=== PATIENT | male | born 1935 | race African-American/Black ===

== ENCOUNTER 2018-05-27 11:07 | Inpatient (IN) | payer MEDICARE, MEDICAID ==
[~2018-05-27] VITALS: Ht 172.7 cm; Wt 66.3 kg
[2018-05-27] MEDS ORDERED: ASPI-1159 PO (11:16)
[2018-05-27] MEDS ORDERED: FERR324T4 PO (11:16)
[2018-05-27] MEDS ORDERED: DOCU250C14 GT (11:16)
[2018-05-27] MEDS ORDERED: CARB200C4 PO (11:16)
[2018-05-27] MEDS ORDERED: PIOG30TA27 PO (11:16)
[2018-05-27] MEDS ORDERED: SIMV10TA6 PO (11:16)
[2018-05-27] MEDS ORDERED: HYDR12.54 PO (11:16)
[2018-05-27] MEDS ORDERED: LEVE500T78 PO (11:16)
[2018-05-27] MEDS ORDERED: ATEN50TA PO (11:16)
[2018-05-27] MEDS ORDERED: CHOL200074 PO (11:16)
[2018-05-27] MEDS ORDERED: SODIUM CHLORIDE 0.9% 1,000 ML IV ONE (13:30)
[2018-05-27] MEDS ORDERED: ONDANSETRON HCL 4MG/2ML VIAL IV STA (13:30)
[2018-05-27 15:48] LABS: HEMATOCRIT. 25.1 % (42.0-52.0); MEAN CORPUSCULAR VOLUME 90.8 fL (80.0-94.0); MEAN PLATELET VOLUME 8.4 fl (7.4-10.4); PLATELET 339 x1000/uL (130-400); RED BLOOD CELL COUNT 2.76 mill/uL (4.7-6.1); RED CELL DISTRIBUTION WIDTH 16.8 % (11.6-14.6)
[2018-05-27 15:53] LABS: CHLORIDE 106 mEq/L (98-107)
[2018-05-27 15:54] LABS: D-DIMER 0.96 mg/L FEU (<0.50); INR 2.2; PROTHROMBIN TIME 22.7 sec (9.4-11.6)
[2018-05-27 15:57] LABS: ETHANOL BLOOD < 10 mg/dL
[2018-05-27 16:00] LABS: AMMONIA 82 uMol/L (<32)
[2018-05-27 16:02] LABS: CARBAMAZEPINE 8.9 ug/mL (4-12); CREATINE KINASE 55 IU/L (39-308); PHENOBARBITAL < 2.1 ug/mL (15.0-40.0)
[2018-05-27 16:11] LABS: PLATELET ESTIMATE NORMAL; VALPROIC ACID < 3.0 ug/mL (50-100)
[2018-05-27] MEDS ORDERED: GUAIFENESIN 200MG/10ML SUGAR FREE UDC PO PRN (18:00)
[2018-05-27] MEDS ORDERED: MAGNESIUM/ALUMINUM HYDROXIDE/SIMETHICONE 30ML UDC PO PRN (18:00)
[2018-05-27] MEDS ORDERED: DIPHENHYDRAMINE 50MG/ML VIAL IV PRN (18:00)
[2018-05-27] MEDS ORDERED: DOCUSATE SODIUM 100MG CAPSULE PO PRN (18:00)
[2018-05-27 19:20] LABS: HEPATITIS B SURFACE ANTIGEN NEGATIVE
[2018-05-27] MEDS ORDERED: MORPHINE SULFATE 4 MG/ML CPJ (NOT FOR IM USE) IV PRN (19:30)
[2018-05-27 19:48] LABS: HEPATITIS B CORE AB IGM NEGATIVE
[2018-05-27 19:50] LABS: HEPATITIS A AB IGM NEGATIVE (NEGATIVE)
[2018-05-27] MEDS ORDERED: NA PHOS,M-B/NA PHOS,DI-BA ENEMA 118ML PR PRN (21:00)
[2018-05-27] MEDS ORDERED: ONDANSETRON 4MG ODT PO PRN (23:45)
[2018-05-27 23:55] VITALS: BP 153/74
[2018-05-28] VITALS: BP_SYST 153; BP_SYST 154; BP_DIAS 74; BP_DIAS 85
[2018-05-28 04:00] VITALS: BP 121/70
[2018-05-28 07:02] LABS: CHLORIDE 109 mEq/L (98-107)
[2018-05-28 07:12] LABS: HEMOGLOBIN. 7.4 g/dL (14.0-18.0); MEAN CORPUSCULAR HEMOGLOBIN 29.6 pg (28.0-32.0); MEAN CORPUSCULAR VOLUME 91.6 fL (80.0-94.0); MEAN PLATELET VOLUME 8.3 fl (7.4-10.4); PLATELET 296 x1000/uL (130-400); RED BLOOD CELL COUNT 2.51 mill/uL (4.7-6.1); RED CELL DISTRIBUTION WIDTH 16.5 % (11.6-14.6)
[2018-05-28 07:49] LABS: HDL CHOLESTEROL 6 mg/dL (40-59)
[2018-05-28 08:00] VITALS: BP 128/73
[2018-05-28 08:01] LABS: LDL CHOLESTEROL 334 mg/dL (5-100)
[2018-05-28 12:00] VITALS: BP 114/72
[2018-05-28] MEDS: LACTULOSE 20G/30ML UDC PO SCH (12:15)
[2018-05-28 15:49] LABS: PLATELET ESTIMATE NORMAL
[2018-05-28 16:00] VITALS: BP 134/89
[2018-05-28 20:00] VITALS: BP 102/67
[2018-05-28] MEDS: CARBAMAZEPINE 200MG TABLET PO SCH (20:58)
[2018-05-28] MEDS: LEVETIRACETAM 500MG TABLET PO SCH (20:58)
[2018-05-29] VITALS: BP 119/79
[2018-05-29 04:00] VITALS: BP 154/85
[2018-05-29 07:19] LABS: AMMONIA 83 uMol/L (<32)
[2018-05-29 08:00] VITALS: BP 121/76
[2018-05-29] MEDS: LACTULOSE 20G/30ML UDC PO SCH ×2 (10:52→18:12)
[2018-05-29] MEDS: LEVETIRACETAM 500MG TABLET PO SCH ×2 (10:53→20:21)
[2018-05-29] MEDS: CARBAMAZEPINE 200MG TABLET PO SCH ×2 (10:54→20:21)
[2018-05-29 12:00] VITALS: BP 113/79
[2018-05-29 16:00] VITALS: BP 131/81
[2018-05-29 20:16] VITALS: BP 125/77
[2018-05-29] MEDS ORDERED: DEXT 5%/0.45% NACL KCL 10MEQ/L 1,000 ML IV SCH (22:00)
[2018-05-29] MEDS: DEXT 5%/0.45% NACL KCL 10MEQ/L 1,000 ML IV SCH (23:41)
[2018-05-30 00:10] VITALS: BP 133/70
[2018-05-30 04:00] VITALS: BP 132/71
[2018-05-30 06:43] LABS: AMMONIA 70 uMol/L (<32); CHLORIDE 109 mEq/L (98-107)
[2018-05-30 07:27] LABS: HEMOGLOBIN. 7.1 g/dL (14.0-18.0); MEAN CORPUSCULAR HEMOGLOBIN 29.6 pg (28.0-32.0); MEAN CORPUSCULAR VOLUME 91.6 fL (80.0-94.0); MEAN PLATELET VOLUME 8.1 fl (7.4-10.4); PLATELET 335 x1000/uL (130-400); RED CELL DISTRIBUTION WIDTH 16.8 % (11.6-14.6)
[2018-05-30 08:00] VITALS: BP 144/89
[2018-05-30 09:02] LABS: PLATELET ESTIMATE NORMAL
[2018-05-30] MEDS: CARBAMAZEPINE 200MG TABLET PO SCH ×2 (09:45→21:25)
[2018-05-30] MEDS: LEVETIRACETAM 500MG TABLET PO SCH ×2 (09:45→21:25)
[2018-05-30] MEDS: LACTULOSE 20G/30ML UDC PO SCH ×2 (09:45→17:00)
[2018-05-30 12:00] VITALS: BP 135/82
[2018-05-30 12:43] LABS: CLARITY URINE CLEAR (CLEAR); COLOR URINE DARK YELLOW (YELLOW); KETONES URINE NEGATIVE (NEGATIVE); LEUKOCYTE ESTERASE URINE TRACE (NEGATIVE); NITRITE URINE NEGATIVE (NEGATIVE); OCCULT BLOOD URINE 2+ (NEGATIVE); PROTEIN URINE 1+ (NEGATIVE); SPECIFIC GRAVITY URINE 1.017 (1.005-1.030); UROBILINOGEN URINE 0.2 E.U./dL (0.2-1.0)
[2018-05-30] MEDS: DEXT 5%/0.45% NACL KCL 10MEQ/L 1,000 ML IV SCH (12:46)
[2018-05-30 13:10] LABS: CANNABINOID URINE SCREEN NEGATIVE (NEGATIVE); METHADONE URINE SCREEN NEGATIVE (NEGATIVE); OPIATES URINE SCREEN NEGATIVE (NEGATIVE); PHENCYCLIDINE URINE SCREEN NEGATIVE (NEGATIVE)
[2018-05-30 13:11] LABS: *AMPHETAMINES SCREEN URINE NEGATIVE (NEGATIVE); *BARBITURATES SCREEN URINE NEGATIVE (NEGATIVE); *BENZODIAZEPINES SCREEN URINE NEGATIVE (NEGATIVE); *COCAINE SCREEN URINE NEGATIVE (NEGATIVE)
[2018-05-30 13:33] LABS: HEMATOCRIT. 23.5 % (42.0-52.0); HEMOGLOBIN. 7.6 g/dL (14.0-18.0); MEAN CORPUSCULAR HEMOGLOBIN 29.5 pg (28.0-32.0); MEAN CORPUSCULAR VOLUME 91.6 fL (80.0-94.0); MEAN PLATELET VOLUME 7.9 fl (7.4-10.4); PLATELET 339 x1000/uL (130-400); RED BLOOD CELL COUNT 2.57 mill/uL (4.7-6.1); RED CELL DISTRIBUTION WIDTH 16.6 % (11.6-14.6)
[2018-05-30 14:10] LABS: PLATELET ESTIMATE NORMAL
[2018-05-30 16:00] VITALS: BP 148/81
[2018-05-30 20:00] VITALS: BP 133/79
[2018-05-31 00:38] VITALS: BP 149/88
[2018-05-31] MEDS: DEXT 5%/0.45% NACL KCL 10MEQ/L 1,000 ML IV SCH ×2 (02:27→16:57)
[2018-05-31 04:00] VITALS: BP 138/79
[2018-05-31 07:04] LABS: CHLORIDE 106 mEq/L (98-107)
[2018-05-31 07:46] LABS: HEMATOCRIT. 23.2 % (42.0-52.0); HEMOGLOBIN. 7.5 g/dL (14.0-18.0); MEAN CORPUSCULAR HEMOGLOBIN 29.6 pg (28.0-32.0); MEAN CORPUSCULAR VOLUME 91.6 fL (80.0-94.0); MEAN PLATELET VOLUME 8.1 fl (7.4-10.4); PLATELET 339 x1000/uL (130-400); RED BLOOD CELL COUNT 2.54 mill/uL (4.7-6.1); RED CELL DISTRIBUTION WIDTH 16.7 % (11.6-14.6)
[2018-05-31 08:00] VITALS: BP 120/74
[2018-05-31] MEDS: LEVETIRACETAM 500MG TABLET PO SCH ×2 (08:21→20:06)
[2018-05-31] MEDS: CARBAMAZEPINE 200MG TABLET PO SCH ×2 (08:21→20:06)
[2018-05-31] MEDS: LACTULOSE 20G/30ML UDC PO SCH ×2 (08:21→16:57)
[2018-05-31] MEDS ORDERED: FLUCONAZOLE 200MG/100ML PREMIX IV ONE (10:30)
[2018-05-31 12:00] VITALS: BP 119/79
[2018-05-31] MEDS ORDERED: FLUCONAZOLE 200 MG/100ML BAG 100 ML IV NR (12:00)
[2018-05-31 17:14] LABS: PLATELET ESTIMATE NORMAL
[2018-05-31 19:01] LABS: INR 2.4; PROTHROMBIN TIME 25.4 sec (9.4-11.6)
[2018-05-31 20:00] VITALS: BP 122/80
[2018-06-01] VITALS (7 sets, daily range): BP systolic 128–158; BP diastolic 67–94
[2018-06-01] MEDS: DEXT 5%/0.45% NACL KCL 10MEQ/L 1,000 ML IV SCH (06:35)
[2018-06-01 06:40] LABS: CHLORIDE 107 mEq/L (98-107)
[2018-06-01 07:29] LABS: AMMONIA 143 uMol/L (<32)
[2018-06-01] MEDS: POTASSIUM CHLORIDE 10MEQ TABLET SR PO SCH (09:39)
[2018-06-01] MEDS: LACTULOSE 20G/30ML UDC PO SCH ×2 (09:39→17:19)
[2018-06-01] MEDS: LEVETIRACETAM 500MG TABLET PO SCH ×2 (09:41→21:02)
[2018-06-01] MEDS: CARBAMAZEPINE 200MG TABLET PO SCH ×2 (09:41→21:02)
[2018-06-01] MEDS: FLUCONAZOLE IV SCH (11:37)
[2018-06-01] MEDS: PANTOPRAZOLE SODIUM 40 MG/VIAL IV SCH ×2 (11:37→21:02)
[2018-06-01] MEDS: PHYTONADIONE 10MG/ML AMP SUBCUT SCH (15:07)
[2018-06-02 04:00] VITALS: BP 153/93
[2018-06-02 06:26] LABS: INR 1.4; PROTHROMBIN TIME 14.5 sec (9.4-11.6)
[2018-06-02 08:00] VITALS: BP 133/82
[2018-06-02] MEDS: PANTOPRAZOLE SODIUM 40 MG/VIAL IV SCH ×2 (09:49→20:10)
[2018-06-02] MEDS: PHYTONADIONE 10MG/ML AMP SUBCUT SCH (09:50)
[2018-06-02] MEDS: POTASSIUM CHLORIDE 10MEQ TABLET SR PO SCH (09:50)
[2018-06-02] MEDS: CARBAMAZEPINE 200MG TABLET PO SCH ×2 (09:50→20:10)
[2018-06-02] MEDS: LEVETIRACETAM 500MG TABLET PO SCH ×2 (09:50→20:10)
[2018-06-02 10:10] LABS: CHLORIDE 108 mEq/L (98-107)
[2018-06-02 12:00] VITALS: BP 149/84
[2018-06-02] MEDS: FLUCONAZOLE IV SCH (12:23)
[2018-06-02] MEDS: LACTULOSE 20G/30ML UDC PO SCH ×2 (12:23→17:37)
[2018-06-02] MEDS: DEXT 5%/0.45% NACL KCL 10MEQ/L 1,000 ML IV SCH (12:23)
[2018-06-02 14:35] LABS: AMMONIA 82 uMol/L (<32)
[2018-06-02 16:00] VITALS: BP 150/94
[2018-06-02 20:15] VITALS: BP 161/94
[2018-06-02] MEDS: CLONIDINE 0.1MG TABLET PO PRN (20:32)
[2018-06-03] VITALS (27 sets, daily range): BP systolic 136–176; BP diastolic 72–100
[2018-06-03] MEDS: DEXT 5%/0.45% NACL KCL 10MEQ/L 1,000 ML IV SCH ×2 (03:33→20:16)
[2018-06-03] MEDS ORDERED: IOHEXOL-300 50 ML BOTTLE IV ONE ×2 (07:58→09:10)
[2018-06-03] MEDS ORDERED: SODIUM BICARBONATE 4% (2.4MEQ) 5ML VIAL IV ONE (07:58)
[2018-06-03] MEDS ORDERED: LIDOCAINE HCL 1% 20ML VIAL (Pyxis) INJ ONE ×2 (07:58→09:10)
[2018-06-03] MEDS ORDERED: FENTANYL CITRATE/PF 50MCG/ML 2ML VIAL IV ONE (08:35)
[2018-06-03] MEDS ORDERED: MIDAZOLAM HCL 5 MG/5 ML VIAL IV ONE (08:35)
[2018-06-03] MEDS ORDERED: MIDAZOLAM HCL 2 MG/2 ML VIAL ONE (08:43)
[2018-06-03] MEDS ORDERED: FENTANYL CITRATE/PF 50MCG/ML 2ML VIAL ONE ×2 (08:43→09:47)
[2018-06-03] MEDS ORDERED: IOHEXOL-300 100 ML BOTTLE ONE (09:40)
[2018-06-03] MEDS: FLUCONAZOLE IV SCH (12:53)
[2018-06-03] MEDS: CARBAMAZEPINE 200MG TABLET PO SCH ×2 (12:54→20:15)
[2018-06-03] MEDS: LACTULOSE 20G/30ML UDC PO SCH ×2 (12:54→18:13)
[2018-06-03] MEDS: POTASSIUM CHLORIDE 10MEQ TABLET SR PO SCH (12:54)
[2018-06-03] MEDS: PANTOPRAZOLE SODIUM 40 MG/VIAL IV SCH ×2 (12:54→20:14)
[2018-06-03] MEDS: LEVETIRACETAM 500MG TABLET PO SCH ×2 (12:54→20:15)
[2018-06-03 13:00] LABS: INR 1.2; PROTHROMBIN TIME 12.2 sec (9.4-11.6)
[2018-06-03] MEDS: DILTIAZEM HCL 60MG TABLET PO PRN ×2 (18:25→20:16)
[2018-06-03 19:02] LABS: HEMATOCRIT. 26.8 % (42.0-52.0); HEMOGLOBIN. 8.7 g/dL (14.0-18.0); MEAN CORPUSCULAR HEMOGLOBIN 29.6 pg (28.0-32.0); MEAN CORPUSCULAR VOLUME 91.3 fL (80.0-94.0); MEAN PLATELET VOLUME 7.9 fl (7.4-10.4); PLATELET 399 x1000/uL (130-400); RED BLOOD CELL COUNT 2.93 mill/uL (4.7-6.1); RED CELL DISTRIBUTION WIDTH 17.3 % (11.6-14.6)
[2018-06-03 19:06] LABS: CHLORIDE 103 mEq/L (98-107)
[2018-06-03 19:22] LABS: PLATELET ESTIMATE NORMAL
[2018-06-03] MEDS: ACETAMINOPHEN 325MG TABLET PO PRN (20:16)
[2018-06-04] VITALS (11 sets, daily range): BP systolic 109–165; BP diastolic 65–100
[2018-06-04 06:49] LABS: AMMONIA 44 uMol/L (<32)
[2018-06-04 06:55] LABS: MEAN CORPUSCULAR HEMOGLOBIN 30.1 pg (28.0-32.0); MEAN CORPUSCULAR VOLUME 91.2 fL (80.0-94.0); MEAN PLATELET VOLUME 7.9 fl (7.4-10.4); PLATELET 324 x1000/uL (130-400); RED BLOOD CELL COUNT 2.27 mill/uL (4.7-6.1); RED CELL DISTRIBUTION WIDTH 17.2 % (11.6-14.6)
[2018-06-04 08:51] LABS: HEMATOCRIT. 20.7 % (42.0-52.0); HEMOGLOBIN. 6.8 g/dL (14.0-18.0)
[2018-06-04] MEDS: POTASSIUM CHLORIDE 10MEQ TABLET SR PO SCH (09:00)
[2018-06-04 09:08] LABS: CHLORIDE 108 mEq/L (98-107)
[2018-06-04] MEDS: LACTULOSE 20G/30ML UDC PO SCH ×2 (11:45→17:38)
[2018-06-04] MEDS: CARBAMAZEPINE 200MG TABLET PO SCH ×2 (11:45→22:29)
[2018-06-04] MEDS: LEVETIRACETAM 500MG TABLET PO SCH ×2 (11:45→22:29)
[2018-06-04] MEDS: PANTOPRAZOLE SODIUM 40 MG/VIAL IV SCH ×2 (11:45→22:29)
[2018-06-04] MEDS: DEXT 5%/0.45% NACL KCL 10MEQ/L 1,000 ML IV SCH (11:48)
[2018-06-04] MEDS: FLUCONAZOLE IV SCH (11:49)
[2018-06-04 17:34] LABS: PLATELET ESTIMATE NORMAL
[2018-06-04 21:21] LABS: INR 1.1; PARTIAL THROMBOPLASTIN TIME 40.1 sec (23.4-31.0); PROTHROMBIN TIME 11.4 sec (9.1-11.1)
[2018-06-04 21:24] LABS: HEMATOCRIT 23.9 % (42.0-52.0); HEMOGLOBIN 8.1 g/dL (14.0-18.0)
[2018-06-04 21:38] LABS: TOTAL IRON BINDING CAPACITY 179 ug/dL (250-450)
[2018-06-04] MEDS: CLONIDINE 0.1MG TABLET PO PRN (23:59)
[2018-06-05] VITALS (8 sets, daily range): BP systolic 138–179; BP diastolic 79–103
[2018-06-05 06:42] LABS: INR 1.1; PARTIAL THROMBOPLASTIN TIME 41.3 sec (23.4-31.0); PROTHROMBIN TIME 11.4 sec (9.1-11.1)
[2018-06-05 07:42] LABS: HEMATOCRIT. 24.4 % (42.0-52.0); HEMOGLOBIN. 8.2 g/dL (14.0-18.0); MEAN CORPUSCULAR HEMOGLOBIN 29.6 pg (28.0-32.0); MEAN CORPUSCULAR VOLUME 87.9 fL (80.0-94.0); MEAN PLATELET VOLUME 8.1 fl (7.4-10.4); PLATELET 276 x1000/uL (130-400); RED BLOOD CELL COUNT 2.78 mill/uL (4.7-6.1); RED CELL DISTRIBUTION WIDTH 16.6 % (11.6-14.6)
[2018-06-05] MEDS: LACTULOSE 20G/30ML UDC PO SCH ×2 (09:00→16:58)
[2018-06-05] MEDS: LEVETIRACETAM 500MG TABLET PO SCH ×2 (09:02→21:33)
[2018-06-05] MEDS: CARBAMAZEPINE 200MG TABLET PO SCH ×2 (09:02→21:33)
[2018-06-05] MEDS: POTASSIUM CHLORIDE 10MEQ TABLET SR PO SCH (09:09)
[2018-06-05] MEDS: PANTOPRAZOLE SODIUM 40 MG/VIAL IV SCH ×2 (09:10→21:32)
[2018-06-05] MEDS ORDERED: SIMETHICONE 40 MG/0.6 ML 30ML ONE (11:00)
[2018-06-05] MEDS ORDERED: FENTANYL CITRATE/PF 50MCG/ML 2ML VIAL ONE (11:00)
[2018-06-05] MEDS: FLUCONAZOLE IV SCH ×2 (11:00→15:13)
[2018-06-05] MEDS ORDERED: MIDAZOLAM HCL 5 MG/5 ML VIAL ONE (11:00)
[2018-06-05] MEDS ORDERED: MIDAZOLAM HCL 5 MG/5 ML VIAL IV PRN (11:13)
[2018-06-05] MEDS ORDERED: FENTANYL CITRATE/PF 50MCG/ML 2ML VIAL IV PRN (11:14)
[2018-06-05 11:23] LABS: CHLORIDE 108 mEq/L (98-107)
[2018-06-05] MEDS: CLONIDINE 0.1MG TABLET PO PRN ×2 (13:52→21:33)
[2018-06-05] MEDS: DEXT 5%/0.45% NACL KCL 10MEQ/L 1,000 ML IV SCH (15:14)
[2018-06-05 16:29] LABS: PLATELET ESTIMATE NORMAL
[2018-06-05] MEDS: ACETAMINOPHEN 325MG TABLET PO PRN ×2 (21:33)
[2018-06-06] VITALS (16 sets, daily range): BP systolic 131–166; BP diastolic 85–100
[2018-06-06 06:47] LABS: HEMATOCRIT. 26.1 % (42.0-52.0); HEMOGLOBIN. 8.9 g/dL (14.0-18.0); MEAN CORPUSCULAR VOLUME 88.4 fL (80.0-94.0); MEAN PLATELET VOLUME 7.7 fl (7.4-10.4); PLATELET 287 x1000/uL (130-400); RED BLOOD CELL COUNT 2.96 mill/uL (4.7-6.1); RED CELL DISTRIBUTION WIDTH 16.6 % (11.6-14.6)
[2018-06-06 07:43] LABS: NUCLEATED RED BLOOD CELLS 2 /100 WBC; PLATELET ESTIMATE NORMAL
[2018-06-06] MEDS: CARBAMAZEPINE 200MG TABLET PO SCH ×2 (08:43→20:18)
[2018-06-06] MEDS: PANTOPRAZOLE SODIUM 40 MG/VIAL IV SCH ×2 (08:43→20:18)
[2018-06-06] MEDS: LEVETIRACETAM 500MG TABLET PO SCH ×2 (08:43→20:18)
[2018-06-06] MEDS: POTASSIUM CHLORIDE 10MEQ TABLET SR PO SCH (08:43)
[2018-06-06] MEDS: LACTULOSE 20G/30ML UDC PO SCH ×2 (08:43→16:57)
[2018-06-06] MEDS ORDERED: SODIUM BICARBONATE 4% (2.4MEQ) 5ML VIAL IV ONE (10:17)
[2018-06-06] MEDS ORDERED: IOHEXOL-300 50 ML BOTTLE IV ONE (10:17)
[2018-06-06] MEDS ORDERED: LIDOCAINE HCL 1% 20ML VIAL (Pyxis) INJ ONE (10:18)
[2018-06-06] MEDS ORDERED: FENTANYL CITRATE/PF 50MCG/ML 2ML VIAL IV ONE (10:30)
[2018-06-06] MEDS ORDERED: FENTANYL CITRATE/PF 50MCG/ML 2ML VIAL ONE (10:32)
[2018-06-06] MEDS: DEXT 5%/0.45% NACL KCL 10MEQ/L 1,000 ML IV SCH (11:46)
[2018-06-06] MEDS: FLUCONAZOLE IV SCH (11:46)
[2018-06-06] MEDS: CLONIDINE 0.1MG TABLET PO PRN ×2 (12:08→20:18)
[2018-06-06] MEDS ORDERED: SODIUM CHLORIDE 0.9% 10ML VIAL ONE (14:57)
[2018-06-06 17:06] LABS: A/G RATIO 0.6 (0.7-1.7); ALBUMIN 2.4 g/dL (2.9-4.4); ALPHA-1-GLOBULIN 0.4 g/dL (0.0-0.4); ALPHA-2-GLOBULIN 0.8 g/dL (0.4-1.0); BETA GLOBULIN 1.6 g/dL (0.7-1.3); GLOBULIN TOTAL 3.9 g/dL (2.2-3.9); M-SPIKE Not Observed g/dL (Not Observed); TOTAL PROTEIN SERUM 6.3 g/dL (6.0-8.5)
[2018-06-06 17:34] LABS: CREATINE KINASE 40 IU/L (39-308)
[2018-06-06] MEDS: ACETAMINOPHEN 325MG TABLET PO PRN (20:18)
[2018-06-07] VITALS: BP 150/95
[2018-06-07 04:00] VITALS: BP 142/90
[2018-06-07 06:14] LABS: HEMATOCRIT. 27.1 % (42.0-52.0); HEMOGLOBIN. 9.1 g/dL (14.0-18.0); MEAN CORPUSCULAR HEMOGLOBIN 29.7 pg (28.0-32.0); MEAN CORPUSCULAR VOLUME 88.1 fL (80.0-94.0); MEAN PLATELET VOLUME 7.5 fl (7.4-10.4); PLATELET 313 x1000/uL (130-400); RED BLOOD CELL COUNT 3.08 mill/uL (4.7-6.1); RED CELL DISTRIBUTION WIDTH 16.8 % (11.6-14.6)
[2018-06-07] MEDS: DEXT 5%/0.45% NACL KCL 10MEQ/L 1,000 ML IV SCH (06:14)
[2018-06-07 07:04] LABS: PHOSPHORUS 3.3 mg/dL (2.5-4.9)
[2018-06-07 08:00] VITALS: BP 158/98
[2018-06-07 08:37] LABS: PLATELET ESTIMATE NORMAL
[2018-06-07] MEDS: LACTULOSE 20G/30ML UDC PO SCH ×2 (09:00→19:03)
[2018-06-07] MEDS ORDERED: MAGNESIUM 4 G PREMIX 100 ML IV ONE (09:15)
[2018-06-07] MEDS: PANTOPRAZOLE SODIUM 40 MG/VIAL IV SCH ×2 (09:53→20:57)
[2018-06-07] MEDS: POTASSIUM CHLORIDE 10MEQ TABLET SR PO SCH (09:54)
[2018-06-07] MEDS: CARBAMAZEPINE 200MG TABLET PO SCH ×2 (09:55→20:57)
[2018-06-07] MEDS: LEVETIRACETAM 500MG TABLET PO SCH ×2 (09:55→20:57)
[2018-06-07] MEDS ORDERED: MAGNESIUM 4 G PREMIX 100 ML IV NR (10:00)
[2018-06-07] MEDS: FLUCONAZOLE IV SCH (10:02)
[2018-06-07 12:00] VITALS: BP 147/93
[2018-06-07 16:00] VITALS: BP 142/96
[2018-06-07] MEDS: DEXT 5%/0.9% NACL 1,000 ML IV SCH (19:04)
[2018-06-07 20:00] VITALS: BP 152/102
[2018-06-08] VITALS: BP_SYST 157; BP_SYST 164; BP_DIAS 92; BP_DIAS 99
[2018-06-08 04:00] VITALS: BP 164/89
[2018-06-08] MEDS: DEXT 5%/0.9% NACL 1,000 ML IV SCH ×2 (07:00→23:35)
[2018-06-08 07:01] LABS: HEMATOCRIT. 26.9 % (42.0-52.0); HEMOGLOBIN. 9.2 g/dL (14.0-18.0); MEAN PLATELET VOLUME 7.5 fl (7.4-10.4); PLATELET 313 x1000/uL (130-400); RED BLOOD CELL COUNT 3.06 mill/uL (4.7-6.1)
[2018-06-08 08:00] VITALS: BP 162/98
[2018-06-08 08:21] LABS: PHOSPHORUS 3.2 mg/dL (2.5-4.9)
[2018-06-08] MEDS: PANTOPRAZOLE SODIUM 40 MG/VIAL IV SCH ×2 (09:45→20:08)
[2018-06-08] MEDS: LACTULOSE 20G/30ML UDC PO SCH ×2 (09:45→17:16)
[2018-06-08] MEDS: CARBAMAZEPINE 200MG TABLET PO SCH ×2 (09:45→20:07)
[2018-06-08] MEDS: LEVETIRACETAM 500MG TABLET PO SCH ×2 (09:45→20:07)
[2018-06-08] MEDS: CLONIDINE 0.1MG TABLET PO PRN (09:45)
[2018-06-08 10:30] LABS: PLATELET ESTIMATE NORMAL
[2018-06-08] MEDS: FLUCONAZOLE IV SCH (11:16)
[2018-06-08 12:00] VITALS: BP 161/96
[2018-06-08 16:00] VITALS: BP 165/97
[2018-06-08] MEDS ORDERED: MAGNESIUM SULFATE 2 GM in DEXTROSE 5% WATER 50 ML IV NR (16:30)
[2018-06-08] MEDS: MAGNESIUM 1 G PREMIX 100 ML IV SCH ×2 (17:16→18:39)
[2018-06-08 20:48] VITALS: BP 153/99
[2018-06-09 00:33] VITALS: BP 175/98
[2018-06-09 04:00] VITALS: BP 175/100
[2018-06-09 07:11] LABS: HEMATOCRIT. 28.9 % (42.0-52.0); HEMOGLOBIN. 9.5 g/dL (14.0-18.0); MEAN CORPUSCULAR HEMOGLOBIN 29.3 pg (28.0-32.0); MEAN CORPUSCULAR VOLUME 88.9 fL (80.0-94.0); MEAN PLATELET VOLUME 7.8 fl (7.4-10.4); PLATELET 340 x1000/uL (130-400); RED BLOOD CELL COUNT 3.25 mill/uL (4.7-6.1); RED CELL DISTRIBUTION WIDTH 17.1 % (11.6-14.6)
[2018-06-09 08:00] VITALS: BP 165/96
[2018-06-09] MEDS: CARBAMAZEPINE 200MG TABLET PO SCH ×2 (08:30→21:01)
[2018-06-09] MEDS: LEVETIRACETAM 500MG TABLET PO SCH ×2 (08:30→21:01)
[2018-06-09] MEDS: LACTULOSE 20G/30ML UDC PO SCH ×2 (08:30→17:00)
[2018-06-09] MEDS: PANTOPRAZOLE SODIUM 40 MG/VIAL IV SCH ×2 (08:30→21:01)
[2018-06-09] MEDS: CLONIDINE 0.1MG TABLET PO PRN (09:42)
[2018-06-09 12:00] VITALS: BP 148/88
[2018-06-09 13:51] LABS: PLATELET ESTIMATE NORMAL
[2018-06-09 16:00] VITALS: BP 157/96
[2018-06-09 20:00] VITALS: BP 140/96
[2018-06-10] VITALS: BP 164/104
[2018-06-10 04:00] VITALS: BP 152/98
[2018-06-10 07:02] LABS: HEMATOCRIT. 27.8 % (42.0-52.0); HEMOGLOBIN. 9.4 g/dL (14.0-18.0); MEAN CORPUSCULAR HEMOGLOBIN 29.6 pg (28.0-32.0); MEAN CORPUSCULAR VOLUME 87.6 fL (80.0-94.0); MEAN PLATELET VOLUME 7.3 fl (7.4-10.4); PLATELET 339 x1000/uL (130-400); RED BLOOD CELL COUNT 3.17 mill/uL (4.7-6.1)
[2018-06-10 08:00] VITALS: BP 155/96
[2018-06-10] MEDS: DEXT 5%/0.9% NACL 1,000 ML IV SCH (08:34)
[2018-06-10] MEDS: CARBAMAZEPINE 200MG TABLET PO SCH ×2 (09:53→20:27)
[2018-06-10] MEDS: LEVETIRACETAM 500MG TABLET PO SCH ×2 (09:53→20:27)
[2018-06-10] MEDS: PANTOPRAZOLE SODIUM 40 MG/VIAL IV SCH ×2 (09:53→20:28)
[2018-06-10] MEDS: LACTULOSE 20G/30ML UDC PO SCH ×2 (09:54→17:44)
[2018-06-10 12:00] VITALS: BP 161/99
[2018-06-10] MEDS ORDERED: MAGNESIUM SULFATE 2 GM in DEXTROSE 5% WATER 50 ML IV NR (12:00)
[2018-06-10 13:06] LABS: ANTI-MYELOPEROXIDASE AB < 9.0 U/mL (0.0-9.0); ANTI-PROTEINASE 3 ABS < 3.5 U/mL (0.0-3.5)
[2018-06-10] MEDS: CLONIDINE 0.1MG TABLET PO PRN ×2 (13:28→20:27)
[2018-06-10 14:17] LABS: ATYPICAL P-ANCA <1:20 titer (Neg:<1:20); CYTOPLASMIC C-ANCA <1:20 titer (Neg:<1:20); PERINUCLEAR P-ANCA <1:20 titer (Neg:<1:20)
[2018-06-10 16:00] VITALS: BP 148/91
[2018-06-10 16:05] LABS: PLATELET ESTIMATE NORMAL
[2018-06-10 20:00] VITALS: BP 160/103
[2018-06-11 04:00] VITALS: BP 134/88
[2018-06-11 05:39] LABS: HEMATOCRIT. 26.5 % (42.0-52.0); HEMOGLOBIN. 9.1 g/dL (14.0-18.0); MEAN CORPUSCULAR HEMOGLOBIN 30.1 pg (28.0-32.0); MEAN CORPUSCULAR VOLUME 87.8 fL (80.0-94.0); MEAN PLATELET VOLUME 7.3 fl (7.4-10.4); PLATELET 330 x1000/uL (130-400); RED BLOOD CELL COUNT 3.02 mill/uL (4.7-6.1)
[2018-06-11 06:00] VITALS: BP_SYST 154; BP_SYST 158; BP_DIAS 60; BP_DIAS 65
[2018-06-11 06:34] LABS: CHLORIDE 106 mEq/L (98-107)
[2018-06-11 06:45] LABS: PHOSPHORUS 2.7 mg/dL (2.5-4.9)
[2018-06-11 08:00] VITALS: BP 154/97
[2018-06-11] MEDS: LEVETIRACETAM 500MG TABLET PO SCH ×2 (08:26→20:08)
[2018-06-11] MEDS: LACTULOSE 20G/30ML UDC PO SCH ×2 (08:26→17:09)
[2018-06-11] MEDS: PANTOPRAZOLE SODIUM 40 MG/VIAL IV SCH ×2 (08:26→20:08)
[2018-06-11] MEDS: CARBAMAZEPINE 200MG TABLET PO SCH ×2 (08:26→20:08)
[2018-06-11 12:00] VITALS: BP 126/88
[2018-06-11 14:02] LABS: PLATELET ESTIMATE NORMAL
[2018-06-11 16:00] VITALS: BP 145/91
[2018-06-11] MEDS: ACETAMINOPHEN 325MG TABLET PO PRN (17:10)
[2018-06-11 20:00] VITALS: BP 151/86
[2018-06-12] VITALS: BP 147/86
[2018-06-12 04:00] VITALS: BP 150/94
[2018-06-12 07:36] LABS: HEMATOCRIT. 27.5 % (42.0-52.0); HEMOGLOBIN. 9.4 g/dL (14.0-18.0); MEAN CORPUSCULAR HEMOGLOBIN 30.2 pg (28.0-32.0); MEAN CORPUSCULAR VOLUME 87.9 fL (80.0-94.0); MEAN PLATELET VOLUME 7.4 fl (7.4-10.4); PLATELET 375 x1000/uL (130-400); RED BLOOD CELL COUNT 3.12 mill/uL (4.7-6.1); RED CELL DISTRIBUTION WIDTH 17.3 % (11.6-14.6)
[2018-06-12 07:45] LABS: CHLORIDE 106 mEq/L (98-107)
[2018-06-12 08:00] VITALS: BP 145/91
[2018-06-12 08:04] LABS: PHOSPHORUS 2.7 mg/dL (2.5-4.9)
[2018-06-12] MEDS: LACTULOSE 20G/30ML UDC PO SCH ×2 (08:25→17:02)
[2018-06-12] MEDS: PANTOPRAZOLE SODIUM 40 MG/VIAL IV SCH ×2 (08:25→22:48)
[2018-06-12] MEDS: LEVETIRACETAM 500MG TABLET PO SCH ×2 (08:25→22:48)
[2018-06-12] MEDS: CARBAMAZEPINE 200MG TABLET PO SCH ×2 (08:25→22:48)
[2018-06-12 12:00] VITALS: BP_SYST 145; BP_SYST 156; BP_DIAS 70; BP_DIAS 91
[2018-06-12] MEDS ORDERED: IOHEXOL-300 50 ML BOTTLE IV ONE (14:10)
[2018-06-12] MEDS ORDERED: SODIUM BICARBONATE 4% (2.4MEQ) 5ML VIAL IV ONE (14:26)
[2018-06-12] MEDS ORDERED: LIDOCAINE HCL 1% 20ML VIAL (Pyxis) INJ ONE (14:26)
[2018-06-12 15:20] LABS: PLATELET ESTIMATE NORMAL
[2018-06-12 16:00] VITALS: BP 161/61
[2018-06-12] MEDS: DILTIAZEM HCL 60MG TABLET PO PRN (17:03)
[2018-06-12 18:38] LABS: BG BASE EXCESS -4.6 mmol/L (-2.0-2.0); BG CARBOXYHEMOGLOBIN 1.3 % (0.5-1.5); BG DEOXYHEMOGLOBIN 5.2 % (0.0-5.0); BG FRACTION INSPIRED OXYGEN 32; BG HCO3 ACT 15.6 mmol/L (22.0-26.0); BG METHEMOGLOBIN 0.1 % (0.0-1.5); BG OXYGEN SATURATION 94.7 % (92.0-98.5); BG OXYHEMOGLOBIN 93.4 % (94.0-97.0); BG PCO2 18.1 mmHg (35.0-45.0); BG PH 7.553 (7.350-7.450); BG PO2 66.4 mmHg (75.0-100.0); BG SAMPLE SITE RIGHT RADIAL; BG TOTAL HEMOGLOBIN 11.6 g/dL (12.0-18.0); BG VENT MODE NASAL CANNULA
[2018-06-12 19:29] LABS: HEMOGLOBIN. 10.7 g/dL (14.0-18.0); MEAN CORPUSCULAR HEMOGLOBIN 29.1 pg (28.0-32.0); MEAN CORPUSCULAR VOLUME 87.1 fL (80.0-94.0); PLATELET 467 x1000/uL (130-400); RED BLOOD CELL COUNT 3.68 mill/uL (4.7-6.1); RED CELL DISTRIBUTION WIDTH 17.3 % (11.6-14.6)
[2018-06-12 19:41] LABS: PLATELET ESTIMATE INCREASED
[2018-06-12] MEDS ORDERED: ONDANSETRON HCL 4MG/2ML VIAL IV PRN (21:15)
[2018-06-12] MEDS ORDERED: METOPROLOL TARTRATE 5MG/5ML VIAL IV PRN (21:30)
[2018-06-12] MEDS: DEXT 5%/0.45% NACL 1000ML 1,000 ML IV SCH (21:49)
[2018-06-12] MEDS: ACETAMINOPHEN 650MG SUPP PR PRN (21:53)
[2018-06-12 22:00] VITALS: BP 119/83
[2018-06-13] VITALS (13 sets, daily range): BP systolic 85–152; BP diastolic 58–94
[2018-06-13 10:16] LABS: HEMATOCRIT. 27.9 % (42.0-52.0); HEMOGLOBIN. 9.4 g/dL (14.0-18.0); MEAN CORPUSCULAR HEMOGLOBIN 29.2 pg (28.0-32.0); MEAN CORPUSCULAR VOLUME 87.2 fL (80.0-94.0); MEAN PLATELET VOLUME 7.7 fl (7.4-10.4); PLATELET 408 x1000/uL (130-400); RED CELL DISTRIBUTION WIDTH 17.4 % (11.6-14.6)
[2018-06-13] MEDS: LEVETIRACETAM 500MG TABLET PO SCH ×2 (10:36→21:51)
[2018-06-13] MEDS: PANTOPRAZOLE SODIUM 40 MG/VIAL IV SCH ×2 (10:36→21:51)
[2018-06-13] MEDS: LACTULOSE 20G/30ML UDC PO SCH ×2 (10:36→18:28)
[2018-06-13] MEDS: CARBAMAZEPINE 200MG TABLET PO SCH ×2 (10:37→21:51)
[2018-06-13] MEDS: DEXT 5%/0.45% NACL 1000ML 1,000 ML IV SCH (10:37)
[2018-06-13 11:06] LABS: CHLORIDE 106 mEq/L (98-107)
[2018-06-13 14:08] LABS: PLATELET ESTIMATE SLIGHTLY INCREASED
[2018-06-13] MEDS: CLONIDINE 0.1MG TABLET PO PRN (18:30)
[2018-06-14] VITALS (8 sets, daily range): BP systolic 2–138; BP diastolic 78–84
[2018-06-14] MEDS: DEXT 5%/0.45% NACL 1000ML 1,000 ML IV SCH ×2 (00:48→13:23)
[2018-06-14 07:43] LABS: HEMATOCRIT. 25.8 % (42.0-52.0); HEMOGLOBIN. 8.7 g/dL (14.0-18.0); MEAN CORPUSCULAR HEMOGLOBIN 29.6 pg (28.0-32.0); MEAN CORPUSCULAR VOLUME 87.6 fL (80.0-94.0); MEAN PLATELET VOLUME 7.7 fl (7.4-10.4); PLATELET 388 x1000/uL (130-400); RED BLOOD CELL COUNT 2.94 mill/uL (4.7-6.1); RED CELL DISTRIBUTION WIDTH 16.7 % (11.6-14.6)
[2018-06-14] MEDS ORDERED: POTASSIUM CHLORIDE 20MEQ/PACKET PO NR (08:15)
[2018-06-14 08:52] LABS: BG BASE EXCESS -6.8 mmol/L (-2.0-2.0); BG CARBOXYHEMOGLOBIN 0.6 % (0.5-1.5); BG DEOXYHEMOGLOBIN 4.2 % (0.0-5.0); BG FRACTION INSPIRED OXYGEN 28; BG HCO3 ACT 16.1 mmol/L (22.0-26.0); BG METHEMOGLOBIN 0.2 % (0.0-1.5); BG OXYGEN SATURATION 95.8 % (92.0-98.5); BG PCO2 24.3 mmHg (35.0-45.0); BG PH 7.439 (7.350-7.450); BG PO2 79.9 mmHg (75.0-100.0); BG SAMPLE SITE RIGHT RADIAL; BG TOTAL HEMOGLOBIN 9.6 g/dL (12.0-18.0); BG VENT MODE NASAL CANNULA
[2018-06-14] MEDS: LEVETIRACETAM 500MG TABLET PO SCH (09:05)
[2018-06-14] MEDS: PANTOPRAZOLE SODIUM 40 MG/VIAL IV SCH (09:05)
[2018-06-14] MEDS: CARBAMAZEPINE 200MG TABLET PO SCH (09:05)
[2018-06-14] MEDS: LACTULOSE 20G/30ML UDC PO SCH ×2 (09:05→16:40)
[2018-06-14] MEDS: CITRIC ACID/SODIUM CITRATE SOLN 30ML UDC PO SCH ×3 (09:11→16:40)
[2018-06-14 16:38] LABS: PLATELET ESTIMATE NORMAL
[2018-06-14] MEDS: ACETAMINOPHEN 650MG SUPP PR PRN (17:55)
== END 2018-06-14 21:09 | DRG 229 ==
LOC: ER 11:27 → 7WST 16:49 → EDBEDREQ 16:50 → SUPCPDRO 17:47 → ENRESERV 20:19 → 5EST 06-12 21:04
PROVIDERS: ADMIT Hospitalist; ATTEND Hospitalist
PROC: 0F9930Z Drainage of Common Bile Duct with Drainage Device, Percutaneous Approach (ICD-10-PCS; 2018-06-03)
PROC: 0FB93ZX Excision of Common Bile Duct, Percutaneous Approach, Diagnostic (ICD-10-PCS; 2018-06-03)
PROC: BF101ZZ Fluoroscopy of Bile Ducts using Low Osmolar Contrast (ICD-10-PCS; 2018-06-03)
PROC: 30233N1 Transfusion of Nonautologous Red Blood Cells into Peripheral Vein, Percutaneous Approach (ICD-10-PCS; 2018-06-04)
PROC: 0DB98ZX Excision of Duodenum, Via Natural or Artificial Opening Endoscopic, Diagnostic (ICD-10-PCS; principal; 2018-06-05 10:00)
PROC: 0F2BX0Z Change Drainage Device in Hepatobiliary Duct, External Approach (ICD-10-PCS; 2018-06-06)
PROC: 0F2BX0Z Change Drainage Device in Hepatobiliary Duct, External Approach (ICD-10-PCS; 2018-06-12)
PROC: BF101ZZ Fluoroscopy of Bile Ducts using Low Osmolar Contrast (ICD-10-PCS; 2018-06-12)
DX: C17.0 Malignant neoplasm of duodenum (principal); N17.0 Acute kidney failure with tubular necrosis; E43 Unspecified severe protein-calorie malnutrition; D68.9 Coagulation defect, unspecified; K83.1 Obstruction of bile duct; E87.2 Acidosis; E72.20 Disorder of urea cycle metabolism, unspecified; B49 Unspecified mycosis; I95.9 Hypotension, unspecified; K92.2 Gastrointestinal hemorrhage, unspecified; N39.0 Urinary tract infection, site not specified; D63.8 Anemia in other chronic diseases classified elsewhere; G40.909 Epilepsy, unspecified, not intractable, without status epilepticus; E83.42 Hypomagnesemia; K86.89 Other specified diseases of pancreas; K80.20 Calculus of gallbladder without cholecystitis without obstruction; N18.9 Chronic kidney disease, unspecified; E78.5 Hyperlipidemia, unspecified; I71.4 Abdominal aortic aneurysm, without rupture; N28.89 Other specified disorders of kidney and ureter; K46.9 Unspecified abdominal hernia without obstruction or gangrene; E78.00 Pure hypercholesterolemia, unspecified; E87.6 Hypokalemia; F17.210 Nicotine dependence, cigarettes, uncomplicated; I10 Essential (primary) hypertension; K40.90 Unilateral inguinal hernia, without obstruction or gangrene, not specified as recurrent; N28.1 Cyst of kidney, acquired; R74.0 Nonspecific elevation of levels of transaminase and lactic acid dehydrogenase [LDH]; D72.829 Elevated white blood cell count, unspecified; R31.9 Hematuria, unspecified; R79.89 Other specified abnormal findings of blood chemistry; Z68.22 Body mass index [BMI] 22.0-22.9, adult; Z79.899 Other long term (current) drug therapy; Z79.82 Long term (current) use of aspirin
CPT/HCPCS: 36415; 36600; 47531; 47533; 47536; 70450; 71045; 74176; 74181; 76700; 77002; 80048; 80053; 80061; 80076; 80156; 80165; 80184; 80185; 80305; 81003; 82105; 82140; 82248; 82270; 82375; 82550; 82570; 82728; 82805; 82962; 82977; 83520; 83540; 83550; 83690; 83735; 83880; 84100; 84155; 84165; 84300; 84443; 84484; 85007; 85014; 85018; 85025; 85027; 85379; 85610; 85730; 86256; 86301; 86705; 86709; 86803; 86850; 86900; 86920; 87040; 87086; 87340; 88305; 92610; 93005; 93970; 96361; 96374; 97116; 97162; 97166; 97530; 99152; 99153; 99285; A4216; A6261; C1725; C1729; C1766; C1769; C9113; G0482; J1200; J1450; J2250; J2405; J3010; J3430; J3475; J3490; J7030; J7040; J7042; J7050; J7060; P9016; Q0162; Q9967

== ENCOUNTER 2018-06-25 10:39 | Inpatient (IN) | payer MEDICARE, MEDICAID ==
[~2018-06-25] VITALS: Ht 170.2 cm; Wt 64.2 kg
[~2018-06-25 10:39] MED LIST: ASPI-1159 PO; ATEN50TA PO; CARB200C4 PO; CHOL200074 PO; DOCU250C14 GT; FERR324T4 PO; HYDR12.54 PO; LEVE500T78 PO; PIOG30TA27 PO; SIMV10TA6 PO
[2018-06-25] MEDS ORDERED: SODIUM CHLORIDE 0.9% 500 ML IV ONE (11:33)
[2018-06-25] MEDS ORDERED: PIPERACILLIN/TAZOBACTAM 3.375GM/50ML PREMIX IV ONE (12:30)
[2018-06-25] MEDS ORDERED: VANCOMYCIN 1 G PREMIX 200 ML IV SCH (12:30)
[2018-06-25 13:48] LABS: HEMATOCRIT. 31.9 % (42.0-52.0); HEMOGLOBIN. 10.6 g/dL (14.0-18.0); MEAN CORPUSCULAR HEMOGLOBIN 28.1 pg (28.0-32.0); MEAN CORPUSCULAR VOLUME 84.4 fL (80.0-94.0); MEAN PLATELET VOLUME 7.3 fl (7.4-10.4); PLATELET 570 x1000/uL (130-400); RED BLOOD CELL COUNT 3.78 mill/uL (4.7-6.1); RED CELL DISTRIBUTION WIDTH 17.8 % (11.6-14.6)
[2018-06-25 13:54] LABS: CHLORIDE 115 mEq/L (98-107)
[2018-06-25 13:56] LABS: INR 1.2; PROTHROMBIN TIME 12.1 sec (9.1-11.1)
[2018-06-25 13:59] LABS: ETHANOL BLOOD < 10 mg/dL
[2018-06-25 14:02] LABS: AMMONIA 22 uMol/L (<32)
[2018-06-25 14:11] LABS: NUCLEATED RED BLOOD CELLS 1 /100 WBC; PLATELET ESTIMATE INCREASED
[2018-06-25 18:13] LABS: CLARITY URINE TURBID (CLEAR); COLOR URINE DARK YELLOW (YELLOW); KETONES URINE NEGATIVE (NEGATIVE); LEUKOCYTE ESTERASE URINE 3+ (NEGATIVE); NITRITE URINE POSITIVE (NEGATIVE); OCCULT BLOOD URINE 3+ (NEGATIVE); PROTEIN URINE 2+ (NEGATIVE); SPECIFIC GRAVITY URINE 1.019 (1.005-1.030)
[2018-06-25 18:20] VITALS: BP 90/62
[2018-06-25 19:58] VITALS: BP 97/63
[2018-06-25] MEDS ORDERED: METO-396 PO (20:14)
[2018-06-25] MEDS ORDERED: CLON-457 PO (20:14)
[2018-06-25] MEDS ORDERED: ACET650S27 PO (20:14)
[2018-06-25] MEDS ORDERED: PROT40 PO (20:14)
[2018-06-25] MEDS ORDERED: ONDA4TAB5 PO (20:14)
[2018-06-25] MEDS ORDERED: LACT10SO PO (20:14)
[2018-06-25] MEDS ORDERED: DILT60TA3 PO (20:14)
[2018-06-25] MEDS: DEXT 5%/0.45% NACL 1000ML 1,000 ML IV SCH (20:19)
[2018-06-25] MEDS ORDERED: ONDANSETRON HCL 4MG/2ML VIAL IV PRN (20:30)
[2018-06-25] MEDS ORDERED: ACETAMINOPHEN 650MG SUPP PR PRN (20:30)
[2018-06-25 21:30] VITALS: BP 97/63
[2018-06-25] MEDS: PIPERACILLIN/TAZ 2.25G PREMIX 50 ML IV SCH (21:32)
[2018-06-25] MEDS ORDERED: VANCOMYCIN 750 MG PREMIX 150 ML IV NR (23:00)
[2018-06-26 00:01] VITALS: BP 106/64
[2018-06-26 04:15] VITALS: BP 126/63
[2018-06-26] MEDS: PIPERACILLIN/TAZ 2.25G PREMIX 50 ML IV SCH ×3 (05:45→21:04)
[2018-06-26] MEDS ORDERED: MULT-1146 PO (07:17)
[2018-06-26] MEDS ORDERED: OR220 PO (07:17)
[2018-06-26] MEDS ORDERED: DOCU-138 PO (07:17)
[2018-06-26 08:06] VITALS: BP 114/76
[2018-06-26 08:14] LABS: HEMATOCRIT. 30.8 % (42.0-52.0); HEMOGLOBIN. 9.9 g/dL (14.0-18.0); MEAN CORPUSCULAR HEMOGLOBIN 27.4 pg (28.0-32.0); MEAN CORPUSCULAR VOLUME 85.4 fL (80.0-94.0); MEAN PLATELET VOLUME 7.6 fl (7.4-10.4); PLATELET 505 x1000/uL (130-400); RED BLOOD CELL COUNT 3.61 mill/uL (4.7-6.1); RED CELL DISTRIBUTION WIDTH 17.3 % (11.6-14.6)
[2018-06-26 08:47] LABS: CHLORIDE 114 mEq/L (98-107)
[2018-06-26] MEDS: DEXT 5%/0.45% NACL 1000ML 1,000 ML IV SCH ×2 (09:44→17:15)
[2018-06-26 12:52] VITALS: BP 103/73
[2018-06-26 14:18] LABS: PLATELET ESTIMATE INCREASED
[2018-06-26 17:22] VITALS: BP 103/67
[2018-06-26 20:25] VITALS: BP 101/62
[2018-06-27] VITALS (18 sets, daily range): BP systolic 84–124; BP diastolic 42–83
[2018-06-27] MEDS: DEXT 5%/0.45% NACL 1000ML 1,000 ML IV SCH (04:10)
[2018-06-27] MEDS: PIPERACILLIN/TAZ 2.25G PREMIX 50 ML IV SCH ×3 (06:19→22:50)
[2018-06-27 10:23] LABS: HEMATOCRIT. 28.5 % (42.0-52.0); HEMOGLOBIN. 9.5 g/dL (14.0-18.0); MEAN CORPUSCULAR HEMOGLOBIN 27.7 pg (28.0-32.0); MEAN CORPUSCULAR VOLUME 83.4 fL (80.0-94.0); PLATELET 423 x1000/uL (130-400); RED BLOOD CELL COUNT 3.42 mill/uL (4.7-6.1); RED CELL DISTRIBUTION WIDTH 17.6 % (11.6-14.6)
[2018-06-27 10:44] LABS: PHOSPHORUS 7.6 mg/dL (2.5-4.9)
[2018-06-27 10:51] LABS: PLATELET ESTIMATE INCREASED
[2018-06-27 16:58] LABS: BG BASE EXCESS -15.6 mmol/L (-2.0-2.0); BG CARBOXYHEMOGLOBIN 0.3 % (0.5-1.5); BG DEOXYHEMOGLOBIN 3.1 % (0.0-5.0); BG FRACTION INSPIRED OXYGEN 99.8; BG HCO3 ACT 7.9 mmol/L (22.0-26.0); BG METHEMOGLOBIN 0.4 % (0.0-1.5); BG OXYGEN SATURATION 96.9 % (92.0-98.5); BG OXYHEMOGLOBIN 96.2 % (94.0-97.0); BG PCO2 14.8 mmHg (35.0-45.0); BG PH 7.343 (7.350-7.450); BG SAMPLE SITE LEFT RADIAL; BG TOTAL HEMOGLOBIN 10.1 g/dL (12.0-18.0); BG VENT MODE MASK - NRB
[2018-06-27] MEDS ORDERED: SODIUM BICARBONATE 8.4% 1 MEQ/ML 50ML SYR IV NR (17:30)
[2018-06-27] MEDS ORDERED: SODIUM BICARBONATE 8.4% 1 MEQ/ML 50ML SYR IV ONE (17:42)
[2018-06-27] MEDS ORDERED: NOREPINEPHRINE 16 MG in DEXT 5% WATER 484 ML IV PRN (18:00)
[2018-06-27] MEDS: SODIUM BICARBONATE 150 MEQ in DEXTROSE 5% WATER 1,000 ML IV SCH (18:34)
[2018-06-28] VITALS (34 sets, daily range): BP systolic 67–151; BP diastolic 30–115
[2018-06-28] MEDS: PIPERACILLIN/TAZ 2.25G PREMIX 50 ML IV SCH ×2 (04:59→13:41)
[2018-06-28 05:23] LABS: HEMATOCRIT. 28.8 % (42.0-52.0); HEMOGLOBIN. 9.4 g/dL (14.0-18.0); MEAN CORPUSCULAR HEMOGLOBIN 27.5 pg (28.0-32.0); MEAN CORPUSCULAR VOLUME 83.9 fL (80.0-94.0); MEAN PLATELET VOLUME 7.6 fl (7.4-10.4); PLATELET 368 x1000/uL (130-400); RED BLOOD CELL COUNT 3.44 mill/uL (4.7-6.1)
[2018-06-28 05:55] LABS: CHLORIDE 111 mEq/L (98-107)
[2018-06-28] MEDS: SODIUM BICARBONATE 150 MEQ in DEXTROSE 5% WATER 1,000 ML IV SCH (06:31)
[2018-06-28 08:31] LABS: ATYPICAL LYMPHOCYTES 1; NUCLEATED RED BLOOD CELLS 1 /100 WBC; PLATELET ESTIMATE NORMAL
[2018-06-28] MEDS ORDERED: LIDOCAINE HCL 1% 10 MG/ML 10ML VIAL ONE (08:39)
[2018-06-28] MEDS ORDERED: VECURONIUM BROMIDE 10 MG/VIAL IV ONE (08:40)
[2018-06-28] MEDS ORDERED: ATROPINE SULFATE 1MG/10ML SYR ONE (08:40)
[2018-06-28] MEDS ORDERED: NORMAL SALINE 0.9% 10 ML SYR ONE (08:40)
[2018-06-28] MEDS ORDERED: ETOMIDATE 2MG/ML 10ML VIAL IV ONE (08:40)
[2018-06-28 08:59] LABS: BG BASE EXCESS -7.6 mmol/L (-2.0-2.0); BG CARBOXYHEMOGLOBIN 0.1 % (0.5-1.5); BG DEOXYHEMOGLOBIN 9.8 % (0.0-5.0); BG FRACTION INSPIRED OXYGEN 40; BG HCO3 ACT 13.9 mmol/L (22.0-26.0); BG METHEMOGLOBIN 0.2 % (0.0-1.5); BG OXYGEN SATURATION 90.2 % (92.0-98.5); BG OXYHEMOGLOBIN 89.9 % (94.0-97.0); BG PCO2 17.9 mmHg (35.0-45.0); BG PH 7.508 (7.350-7.450); BG PO2 62.2 mmHg (75.0-100.0); BG SAMPLE SITE RIGHT RADIAL; BG TOTAL HEMOGLOBIN 9.1 g/dL (12.0-18.0); BG VENT MODE NASAL CANNULA
[2018-06-28] MEDS ORDERED: SODIUM BICARBONATE 7.5% 0.9 MEQ/ML 50ML SYR IV ONE (09:49)
[2018-06-28] MEDS ORDERED: CALCIUM CHLORIDE 1GM/10ML SYR IV ONE (09:49)
[2018-06-28] MEDS ORDERED: EPINEPHRINE 0.1MG/ML (1:10,000) 10ML SYR ONE (09:49)
[2018-06-28] MEDS ORDERED: IPRATROPIUM/ALBUTEROL 0.5-3(2.5)MG/3ML NEB HHN PRN (10:45)
[2018-06-28] MEDS: IPRATROPIUM/ALBUTEROL 0.5-3(2.5)MG/3ML NEB HHN SCH ×2 (11:56→15:55)
[2018-06-28] MEDS ORDERED: MANNITOL 12.5G (25%) VIAL 50ML IV NR (12:15)
[2018-06-28] MEDS ORDERED: VANCOMYCIN 750 MG PREMIX 150 ML IV SCH (16:00)
[2018-06-28] MEDS ORDERED: PHENYLEPHRINE 20 MG in DEXT 5% WATER 248 ML IV PRN (17:30)
== END 2018-06-28 17:17 | disposition expired | DRG 720 ==
LOC: ER 13:27 → CANRESERV 14:14 → ENRESERV 14:14 → 6WST 14:59 → EDBEDREQ 15:01 → ENRESERV 16:29 → CVICU 06-27 17:17
PROVIDERS: ADMIT Hospitalist; ATTEND Hospitalist
PROC: 0F2BX0Z Change Drainage Device in Hepatobiliary Duct, External Approach (ICD-10-PCS; 2018-06-27)
PROC: 0BH17EZ Insertion of Endotracheal Airway into Trachea, Via Natural or Artificial Opening (ICD-10-PCS; principal; 2018-06-28)
PROC: 5A1935Z Respiratory Ventilation, Less than 24 Consecutive Hours (ICD-10-PCS; 2018-06-28)
PROC: 5A12012 Performance of Cardiac Output, Single, Manual (ICD-10-PCS; 2018-06-28)
PROC: 02H633Z Insertion of Infusion Device into Right Atrium, Percutaneous Approach (ICD-10-PCS; 2018-06-28)
PROC: B244ZZZ Ultrasonography of Right Heart (ICD-10-PCS; 2018-06-28)
PROC: 5A1D70Z Performance of Urinary Filtration, Intermittent, Less than 6 Hours Per Day (ICD-10-PCS; 2018-06-28)
DX: A41.9 Sepsis, unspecified organism (principal); J69.0 Pneumonitis due to inhalation of food and vomit; J96.00 Acute respiratory failure, unspecified whether with hypoxia or hypercapnia; E43 Unspecified severe protein-calorie malnutrition; G93.40 Encephalopathy, unspecified; N17.9 Acute kidney failure, unspecified; E87.0 Hyperosmolality and hypernatremia; B49 Unspecified mycosis; D47.9 Neoplasm of uncertain behavior of lymphoid, hematopoietic and related tissue, unspecified; N39.0 Urinary tract infection, site not specified; N18.9 Chronic kidney disease, unspecified; I12.9 Hypertensive chronic kidney disease with stage 1 through stage 4 chronic kidney disease, or unspecified chronic kidney disease; I25.10 Atherosclerotic heart disease of native coronary artery without angina pectoris; B95.5 Unspecified streptococcus as the cause of diseases classified elsewhere; R17 Unspecified jaundice; D64.9 Anemia, unspecified; R80.9 Proteinuria, unspecified; E78.00 Pure hypercholesterolemia, unspecified; E78.5 Hyperlipidemia, unspecified; N28.1 Cyst of kidney, acquired; R65.20 Severe sepsis without septic shock; Z85.068 Personal history of other malignant neoplasm of small intestine; Z79.899 Other long term (current) drug therapy; Z68.22 Body mass index [BMI] 22.0-22.9, adult
CPT/HCPCS: 36415; 36556; 36600; 47536; 70450; 71045; 74176; 76770; 76937; 80048; 80053; 80076; 80202; 81003; 82140; 82375; 82805; 82962; 83605; 83690; 83735; 83880; 84100; 84134; 84484; 85007; 85025; 85027; 85610; 87040; 87077; 87086; 87186; 92610; 93005; 93970; 96365; 99285; A4216; A6261; C1752; C1769; C1893; G0482; J0461; J2150; J2543; J3370; J3490; J7030; J7040; J7070; J7620; A4315